=== PATIENT | female | born 1950 | race Caucasian/White ===

== ENCOUNTER → 2016-12-27 | Outpatient (CLI) | payer MEDICARE, BC ==
--- NOTE | 2016-12-27 14:54 | REP ---
PELVIC ULTRASOUND: Real-time sonographic evaluation of the pelvis performed utilized transabdominal and endovaginal technique. Bladder measures 10.4 x 7.6 x 8.8 cm. Uterus measures 6.6 x 2.2 x 4.0 cm. Endometrial thickness is 3 mm maximally in AP dimension with no endometrial fluid collection seen. Ovaries appear normal in size and echotexture, right ovary measuring 2.4 x 1.2 x 1.4 cm and left ovary 2.8 x 1.4 x 1.8 cm. There is no adnexal mass or free fluid. There is a right uterine fibroid measuring 1.9 x 1.1 x 1.0 cm. Subcentimeter nabothian cyst is seen in the region of the cervix. IMPRESSION: Normal endometrial thickness. Right fibroid measures 1.9 cm in maximum diameter.
== END ==
LOC: M WHC 12:39
PROVIDERS: ATTEND Obstetrics & Gynecology
DX: N95.0 Postmenopausal bleeding (principal)

== ENCOUNTER → 2018-03-03 | Outpatient (CLI) | payer MEDICARE, BC | LOC: M WHC 13:05 | DX: Z12.31 Encounter for screening mammogram for malignant neoplasm of breast (principal); M85.80 Other specified disorders of bone density and structure, unspecified site | CPT/HCPCS: 77067 ==

== ENCOUNTER → 2019-03-05 | Outpatient (CLI) | payer MEDICARE, BC ==
--- NOTE | 2019-03-05 13:17 | REPMRS ---
Patient History The patient states she had a clinical breast exam in 02/2019. Patient is postmenopausal, has history of endometrial cancer at age 66, and is nulliparous. Family history of breast cancer at age 50 or over and pancreatic cancer at age 73 in mother, breast cancer at age 80 in maternal grandmother, breast cancer at age 50 or over in paternal aunt, breast cancer at age 50 or over in paternal aunt. Benign excisional biopsy of the right breast, 2002. Took hormonal contraceptives for 4 years. 3D TOMOSYNTHESIS WAS PERFORMED. Digital Woman Screen Mammo: March 05, 2019 - Exam #: [id number] Bilateral CC and MLO view(s) were taken. Technologist: Socorro Hollis, Technologist Prior study comparison: March 03, 2018, bilateral digital woman screen mammo performed at [facility]. March 04, 2017, digital woman screen mammo performed at [facility]. FINDINGS: The breast tissue is heterogeneously dense. This may lower the sensitivity of mammography. There has been no change in the appearance of the mammogram from the prior studies. There is a moderate amount of residual fibroglandular tissue which is fairly symmetric. There is no interval development of dominant mass, areas of architectural distortion, or clustered microcalcification typical of malignancy. Assessment: BI-RADS/ACR category 1 mammogram. Negative Mammogram. Recommendation Routine screening mammogram in 1 year (for women over age 40). This mammogram was interpreted with the aid of an FDA-approved computer-aided dectection system. THE LIFETIME RISK OF BREAST CANCER IS 20.6%, THEREFORE SUPPLEMENTAL SCREENING MRI OF THE BREASTS IS RECOMMENDED IN 6 MONTHS. Electronically Signed By: Tavares Kaiser MD 03/05/19 [id number]
== END ==
LOC: M WHC 12:16
PROVIDERS: ATTEND Obstetrics & Gynecology
DX: Z12.31 Encounter for screening mammogram for malignant neoplasm of breast (principal); Z78.0 Asymptomatic menopausal state; Z85.42 Personal history of malignant neoplasm of other parts of uterus; Z80.3 Family history of malignant neoplasm of breast; Z80.0 Family history of malignant neoplasm of digestive organs; Z92.0 Personal history of contraception

== ENCOUNTER → 2020-03-11 | Outpatient (CLI) | payer MEDICARE, BC ==
--- NOTE | 2020-03-11 16:04 | DEXA ---
INDICATION: R29.890 LOSS OF HEIGHT. COMPARISON: 03/03/2018 as well as other prior exams. TECHNIQUE: Bone density was measured using dual-energy x-ray absorptiometry (DEXA). FINDINGS: AP SPINE L1-L4 BMD 1.140 g/cm2 Young Adult T-Score -0.4 Age Matched Z-Score 1.2. LT FEMUR, TOTAL BMD 1.092 g/cm2 Young Adult T-Score 0.7 Age Matched Z-Score 2.0. LT NECK BMD 0.914 g/cm2 Young Adult T-Score -0.9 Age Matched Z-Score 0.7. RT FEMUR, TOTAL BMD 1.079 g/cm2 Young Adult T-Score 0.6 Age Matched Z-Score 1.9. RT NECK BMD 0.921 g/cm2 Young Adult T-Score -0.8 Age Matched Z-Score 0.8. IMPRESSION: There is normal bone density of the spine. There is normal bone density of the left hip. There is normal bone density of the right hip. The density of the spine has increased 10.6% since the initial exam on 01/01/2005. The density of the spine decreased 0.2% since most recent exam on 03/03/2018. The density of the left hip has decreased 0.8% since initial exam on 01/01/2005. The density of the left hip has decreased 0.5% since most recent exam on 03/03/2018. The density of the right hip has increased 5.2% since the initial exam on 01/01/2005. The density of the right hip has increased 0.7% since the most recent exam on 03/03/2018. FOLLOW-UP: Recommendation for the next bone density exam: 2 years. <Electronically signed by Tavares Kaiser > 03/11/20 [id number]
--- NOTE | 2020-03-11 17:52 | REP ---
INDICATION: Z12.31 SCREENING MAMMO. Family history of breast cancer at age 50 or over in mother, at age 80 in maternal grandmother, and over age 50 in 2 paternal aunts. COMPARISON: 03/05/2019 as well as other prior exams. TECHNIQUE: MLO and cc views of bilateral breasts performed. FINDINGS: Moderate fibroglandular tissue is seen bilaterally in a heterogeneous pattern. There is an oval well-circumscribed nodule at 6 o'clock left breast. Maximum diameter is 1 cm. Otherwise parenchymal pattern is unchanged with no other evidence of a new mass or architectural distortion. Scattered benign-appearing calcifications are seen diffusely bilaterally. The Volpara volumetric breast density pattern is B. IMPRESSION: BIRADS/ACR category 0 incomplete. Oval smoothly marginated nodule 6 o'clock left breast with maximum diameter 1 cm. Recommend spot compression views and ultrasound to further evaluate. This patient's Tyrer-Cuzick lifetime breast cancer risk assessment score is 19.5%. This mammogram was interpreted with the aid of an FDA-approved computer-aided detection system. The patient states she had a clinical breast exam in March 2020. The patient letter being requested is M0. RECOMMENDATION: Recommend spot compression views and ultrasound left breast. <Electronically signed by Tavares Kaiser > 03/11/20 [id number]
== END ==
LOC: M WHC 12:05
PROVIDERS: ATTEND Obstetrics & Gynecology
DX: Z12.31 Encounter for screening mammogram for malignant neoplasm of breast (principal); R29.890 Loss of height; M85.89 Other specified disorders of bone density and structure, multiple sites

== ENCOUNTER → 2020-03-21 | Outpatient (CLI) | payer MEDICARE, BC ==
--- NOTE | 2020-03-21 18:04 | REP ---
INDICATION: ADDITIONAL VIEWS LT BREAST. COMPARISON: Mammogram 03/11/2020. TECHNIQUE: Spot compression views left breast performed as well as focused left breast ultrasound. FINDINGS: A smoothly marginated oval nodule is confirmed at the 6 o'clock position of the left breast approximately 4 cm from the nipple. This measures about 1 cm in diameter. Focused left breast ultrasound performed at the 6 o'clock position. 2 cysts are seen at this location, measuring 5 x 7 x 4 mm and 7 x 6 x 5 mm. IMPRESSION: BIRADS/ACR category 2 benign. Smoothly marginated oval nodule confirmed at 6 o'clock position left breast. By ultrasound this corresponds to a simple cyst which is benign. Another adjacent simple cyst is also noted sonographically. This mammogram was interpreted with the aid of an FDA-approved computer-aided detection system. The patient letter being requested is M 1. RECOMMENDATION: Repeat screening mammography recommended 1 year (for women over 40). <Electronically signed by Tavares Kaiser > 03/21/20 1800
== END ==
LOC: M WHC 13:23
PROVIDERS: ATTEND Obstetrics & Gynecology
DX: R92.8 Other abnormal and inconclusive findings on diagnostic imaging of breast (principal); N63.23 Unspecified lump in the left breast, lower outer quadrant; N60.02 Solitary cyst of left breast

== ENCOUNTER → 2021-03-17 | Outpatient (CLI) | payer MEDICARE, BC ==
--- NOTE | 2021-03-17 13:16 | REPMRS ---
Patient History The patient states she had a clinical breast exam 03-17-2021. Family history of breast cancer at age 50 or over and pancreatic cancer at age 73 in mother, breast cancer at age 80 in maternal grandmother, breast cancer at age 50 or over in paternal aunt, breast cancer at age 50 or over in paternal aunt. Benign excisional biopsy of the right breast, 2002. Took hormonal contraceptives for 4 years. Tomosynthesis is performed. Volpara breast density is b. Tyrer-zick lifetime risk of breast cancer 18.5%. Patient states no breast complaints today. Patient has signed MRS History Sheet. Digital Woman Screen Mammo: March 17, 2021 - Exam #: [id number] Bilateral CC and MLO view(s) were taken. Technologist: Gunjan Faust Hearing Aid Assistant Prior study comparison: March 21, 2020, left breast diagnostic unilateral mammo performed at [facility]. March 11, 2020, bilateral digital woman screen mammo performed at [facility]. FINDINGS: The breast tissue is heterogeneously dense. This may lower the sensitivity of mammography. There is a fairly symmetric fibroglandular pattern in both breasts. There has been no interval development of masses, areas of architectural distortion or clusters of microcalcifications typical of malignancy. The previously identified cyst at 6 o'clock left breast remains stable. No significant changes when compared with prior studies. Assessment: BI-RADS/ACR category 2 mammogram. Benign Findings. Recommendation Routine screening mammogram of both breasts in 1 year (for women over age 40). This mammogram was interpreted with the aid of an FDA-approved computer-aided dectection system. Electronically Signed By: Tavares Kaiser MD 03/17/21 [id number]
== END ==
LOC: M WHC 12:03
PROVIDERS: ATTEND Obstetrics & Gynecology
DX: Z12.31 Encounter for screening mammogram for malignant neoplasm of breast (principal)

== ENCOUNTER → 2022-03-22 | Outpatient (CLI) | payer MEDICARE, BC | LOC: M WHC 14:39 | PROVIDERS: ATTEND Nurse Practitioner Family | DX: Z12.31 Encounter for screening mammogram for malignant neoplasm of breast (principal); Z13.820 Encounter for screening for osteoporosis; M85.851 Other specified disorders of bone density and structure, right thigh ==

== ENCOUNTER → 2022-03-22 | Outpatient (REF) | payer MEDICARE, BC | LOC: M SFHCWAGY 10:12 | PROVIDERS: ATTEND Nurse Practitioner Family | DX: Z12.4 Encounter for screening for malignant neoplasm of cervix (principal) ==

== ENCOUNTER → 2023-04-08 | Outpatient (CLI) | payer MEDICARE, BC | LOC: M WHC 13:25 | PROVIDERS: ATTEND Specialist | DX: Z12.31 Encounter for screening mammogram for malignant neoplasm of breast (principal) ==

== ENCOUNTER → 2024-09-01 | Outpatient (CLI) | payer MEDICARE | LOC: M WHC 13:18 | PROVIDERS: ATTEND Specialist | DX: Z12.31 Encounter for screening mammogram for malignant neoplasm of breast (principal); R92.333 Mammographic heterogeneous density, bilateral breasts ==

== ENCOUNTER → 2024-09-01 | Outpatient (REF) | payer MEDICARE, BC | LOC: M SFHCWAGY 15:26 | PROVIDERS: ATTEND Specialist | DX: Z01.419 Encounter for gynecological examination (general) (routine) without abnormal findings (principal) ==

== ENCOUNTER → 2024-09-01 | Outpatient (CLI) | payer MEDICARE | LOC: M WHC 13:23 | PROVIDERS: ATTEND Specialist | DX: Z13.820 Encounter for screening for osteoporosis (principal); M85.851 Other specified disorders of bone density and structure, right thigh ==